=== PATIENT | male | born 1965 | race Caucasian/White ===

== ENCOUNTER 2018-06-22 01:00 | Emergency (ER) | payer OTHER ==
[~2018-06-22] VITALS: Ht 167.6 cm; Wt 70.3 kg
[2018-06-22] MEDS ORDERED: OMEPRAZOLE40 MG (01:38)
[2018-06-22] MEDS ORDERED: CEFADROXIL500 MG PO (04:51)
== END 2018-06-22 04:59 | disposition home or self-care (01) ==
LOC: ER 01:00
DX: S81.822A Laceration with foreign body, left lower leg, initial encounter (principal); W45.8XXA Other foreign body or object entering through skin, initial encounter; Y93.89 Activity, other specified; Y92.89 Other specified places as the place of occurrence of the external cause; Y99.8 Other external cause status